=== PATIENT | female | born 1945 | race Caucasian/White ===

== ENCOUNTER 2018-05-14 12:14 | Day surgery (SDC) | payer MEDICARE, OTHER ==
[~2018-05-14] VITALS: Ht 167.6 cm; Wt 75.1 kg
[~2018-05-14 12:14] MED LIST: ALEN70; ATEN50 PO; Atenolol50 MG; CARB200 PO; Carbamazepine200 MG; GEMF600 PO; Gemfibrozil600 MG; HYDCHL12.5; LOSARTAN POTAS100 MG PO; Lisinopril2.5 MG; MOEXIPRIL HCTZ PO; VITAMIN D22000 UNIT PO
== END 2018-05-14 15:10 | disposition home or self-care (01) ==
LOC: ORSCSDS 12:14
PROVIDERS: Internal Medicine Gastroenterology
PROC: 0DBK8ZX Excision of Ascending Colon, Via Natural or Artificial Opening Endoscopic, Diagnostic (ICD-10-PCS; principal; 2018-05-14 13:45)
PROC: 0DBN8ZX Excision of Sigmoid Colon, Via Natural or Artificial Opening Endoscopic, Diagnostic (ICD-10-PCS; principal; 2018-05-14 13:45)
PROC: 0DBM8ZX Excision of Descending Colon, Via Natural or Artificial Opening Endoscopic, Diagnostic (ICD-10-PCS; principal; 2018-05-14 13:45)
DX: Z12.11 Encounter for screening for malignant neoplasm of colon (principal); D12.2 Benign neoplasm of ascending colon; K63.5 Polyp of colon; K57.30 Diverticulosis of large intestine without perforation or abscess without bleeding; Z86.010 Personal history of colon polyps; I10 Essential (primary) hypertension; I69.959 Hemiplegia and hemiparesis following unspecified cerebrovascular disease affecting unspecified side; G40.909 Epilepsy, unspecified, not intractable, without status epilepticus; Z79.899 Other long term (current) drug therapy
CPT/HCPCS: 88305; J7120

== ENCOUNTER 2019-01-27 09:33 | Day surgery (SDC) | payer MEDICARE, OTHER ==
[~2019-01-27] VITALS: Ht 167.6 cm; Wt 74.7 kg
--- NOTE | 2019-01-27 11:30 | NUR ---
01/27/19 1130 Araceli Camacho SIMETHICONE USED DURING PROCEDURE.
== END 2019-01-27 12:00 | disposition home or self-care (01) ==
LOC: ORSCSDS 09:33
PROVIDERS: Internal Medicine Gastroenterology
PROC: 0DBN8ZX Excision of Sigmoid Colon, Via Natural or Artificial Opening Endoscopic, Diagnostic (ICD-10-PCS; principal; 2019-01-27 11:00)
DX: Z12.11 Encounter for screening for malignant neoplasm of colon (principal); K63.5 Polyp of colon; K57.30 Diverticulosis of large intestine without perforation or abscess without bleeding; Z86.010 Personal history of colon polyps; I10 Essential (primary) hypertension; I62.9 Nontraumatic intracranial hemorrhage, unspecified; G81.91 Hemiplegia, unspecified affecting right dominant side; Z79.899 Other long term (current) drug therapy
CPT/HCPCS: 88305; J2704; J7120